=== PATIENT | male | born 1965 | race American Indian/Alaskan Native ===

== ENCOUNTER 2019-05-28 09:26 | Outpatient (CLI) | payer OTHER ==
[2019-05-28 10:16] LABS: Blood Urea Nitrogen 22 mg/dL (9-20)
--- NOTE | 2019-05-28 13:04 | Cat Scan Report ---
CT abdomen pelvis w con INDICATION: RECURRENT LEFT FLANK PAIN. TECHNIQUE: All CT scans at this location are performed using the following dose modulation technique: Automated exposure control. CONTRAST: IV and oral. COMPARISON: None available. CT ABDOMEN: Evaluation of the parenchymal organs demonstrates benign-appearing renal cysts. The bile ducts are mildly prominent. The pancreatic duct is at the upper limits of normal in size. Negative for abdominal mass, fluid or inflammation. The bowel is not dilated or thickened. A normal appendix is identified. CT PELVIS: Negative for distal ureteral stone, fluid collection or inflammation. A right-sided bladde r diverticulum measures 1.5 cm. IMPRESSION: 1. Negative for obstruction or localized inflammation. 2. Prominence of the bile duct greater at an intrahepatic location. This is of uncertain significance . Recommend correlation with LFTs. Signer Name: Rolando Martinez MD Signed: 05/28/2019 12:59 PM Workstation Name: [id number]
== END 2019-05-28 09:27 | disposition home or self-care (01) ==
LOC: CT 09:26
PROVIDERS: ATTEND Adult Companion
DX: R10.9 Unspecified abdominal pain (principal)
CPT/HCPCS: 36415; 74177; 82565; 84520; Q9967